=== PATIENT | female | born 1935 | race African-American/Black ===

== ENCOUNTER 2018-07-13 13:23 | Inpatient (IN) | payer MEDICARE, MEDICAID ==
--- NOTE | 2018-07-13 14:15 | C.PDOC ---
History Of Present Illness 82 y/o female with a PMHx of HTN, hypercholesterolemia, osteoporosis, sent in by PMD for 3 day history of chest pain and shortness of breath. Patient describes the pain as pressure-like and non-radiating. Daughter at bedside reports patient has been complaining of lightheadedness as well. She otherwise denies any fevers, chills, night sweats, abdominal pain, diarrhea, bloody or dark stools, productive cough, dizziness, nausea, vomiting, or leg pain/swelling. Daughter states patient did not take any aspirin or medication for pain prior to arrival. Patient is complaint with all other medications as per family, they deny any blo od thinner use. PMD- Dr. Harris Time Seen by Provider: 07/13/18 14:15 Chief Complaint (Nursing): Chest Pain History Per: Family (Daughter at bedside) History/Exam Limitations: no limitations Onset/Duration Of Symptoms: Days (x3) Current Symptoms Are (Timing): Still Present Quality: Pressure Associated Symptoms: Dyspnea Past Medical History Reviewed: Historical Data, Nursing Documentation, Vital Signs Vital Signs: Last Vital Signs Temp 99.1 F 07/13/18 13:26 Pulse 89 07/13/18 13:26 Resp 20 07/13/18 13:26 BP 187/66 H 07/13/18 13:26 Pulse Ox - Medical History PMH: HTN, Hypercholesterolemia, Osteoporosis Family History: States: No Known Family Hx - Social History Hx Alcohol Use: No Hx Substance Use: No - Immunization History Hx Tetanus Toxoid Vaccination: No Hx Influenza Vaccination: No Review Of Systems Constitutional: Negative for: Fever, Chills, Sweats Eyes: Negative for: Pain, Vision Change ENT: Negative for: Ear Pain, Ear Discharge, Nose Congestion, Mouth Pain Cardiovascular: Positive for: Chest Pain, Light Headedness Respiratory: Positive for: Shortness of Breath. Negative for: Cough, Hemoptysis, SOB with Excertion, Pleuritic Pain Gastrointestinal: Negative for: Nausea, Vomiting, Abdominal Pain, Diarrhea, Melena, Hematochezia Genitourinary: Negative for: Dysuria, Frequency Musculoskeletal: Negative for: Neck Pain, Shoulder Pain Neurological: Negative for: Weakness, Numbness, Headache, Dizziness Physical Exam - Physical Exam Appears: Non-toxic, No Acute Distress Skin: Warm, Dry Head: Normacephalic Eye(s): bilateral: Normal Inspection, PERRL, EOMI Oral Mucosa: Moist Neck: Trachea Midline, Supple, Other (No meningeal signs- negative kernig's and brudzinskis) Chest: Symmetrical, No Tenderness Cardiovascular: Rhythm Regular, Other (no rub) Respiratory: No Accessory Muscle Use, Rales (bilaterally at the bases), No Rhonchi, No Wheezing, Other (No respiratory distress) Gastrointestinal/Abdominal: Soft, No Tenderness, No Distention Back: No CVA Tenderness, No Vertebral Tenderness Extremity: Bilateral: Normal Color And Temperature Pulses: Left Dorsalis Pedis: Normal, Right Dorsalis Pedis: Normal Neurological/Psych: Oriented x3 ED Course And Treatment - Laboratory Results Result Diagrams: 07/13/18 14:40 07/13/18 14:40 O2 Sat by Pulse Oximetry: 100 Pulse Ox Interpretation: Normal Medical Decision Making Medical Decision Making: Impression: 82 y/o F p/w chest pain and SOB for 3 days. Sent in by PMD For eval and admission, b/l crackles at bases in NAD on exam. b/l LE 1+ swelling. Pending imaging and labs. Initial Plan: --EKG --CMP --Magnesium --Troponin I --Pro-BNP --CBC --PTT/PT --Blood type/screen --Duoneb 3 ml INH --Lasix 20 mg IVP --Reassess after treatment Progress: EK bpm, NSR, no STEMI 1526 troponin unremarkable BNP elevated Lasix given No wheezes on exam, duoneb given ppx. Pending XRAY, followed by ASA if non-enlarged mediastinum CXR read: Cardiomegaly. Moderate pulmonary venous congestion. Will obtain CT Chest. given some mediastinal enlargement CTA Chest resulted: There is suboptimal opacification of the pulmonary arteries. Given this limitation, there are no visible intraluminal filling defects within the central pulmonary arteries to suggest central pulmonary embolism. Patchy bilateral ground-glass opacities and evidence of thickened septal lines presumably due to mild interstitial edema. Correlate clinically. Cardiomegaly. 10 mm nodule noted within the left breast soft tissues of uncertain etiology. Recommend correlation with physical exam and dedicated breast imaging. 1757 no aortic dissection per CT Informed family regarding 10 mm nodule appreciate consult w/ Dr. Harris- to admit to his service. ASA ordered. pt in NAD. Disposition - Disposition Disposition Time: 17:58 Condition: GOOD Forms: [facility] (Japanese) - Clinical Impression Clinical Impression: Chest pain - Scribe Statement The provider has reviewed the documentation as recorded by the Scribe (Sheryl Bunch) Provider Attestation: All medical record entries made by the Scribe were at my direction and person ally dictated by me. I have reviewed the chart and agree that the record accurately reflects my personal performance of the history, physical exam, medical decision making, and the department course for this patient. I have also personally directed, reviewed, and agree with the discharge instructions and disposition.
[2018-07-13] MEDS ORDERED: Albuterol-Ipratrop 3 mg / 0.5 (3 ml) UD ONE (14:42)
[2018-07-13 14:46] LABS: BASO # 0.1 K/uL (0.0-0.2); BASO % 1.4 % (0.0-2.0); EOS # 0.1 K/uL (0.0-0.7); EOS % 1.3 % (0.0-4.0); HEMOGLOBIN 11.6 g/dL (11.0-16.0); LYMPH # 2.1 K/uL (1.0-4.3); LYMPH % 20.5 % (20.0-40.0); MEAN CELL VOLUME 81.5 fL (81.0-99.0); MEAN CORPUSCULAR HEMOGLOBIN 25.5 pg (27.0-31.0); MEAN CORPUSCULAR HGB CONC 31.3 g/dL (33.0-37.0); MEAN PLATELET VOLUME 9.3 fL (7.2-11.7); MONO # 1.1 K/uL (0.0-0.8); MONO % 10.8 % (0.0-10.0); NEUT # 6.7 K/uL (1.8-7.0); NRBC % 0.1 % (0.0-2.0); RBC 4.53 Mil/uL (3.80-5.20); WHITE BLOOD COUNT 10.2 K/uL (4.8-10.8)
[2018-07-13 14:54] LABS: INR 1.2; PROTHROMBIN TIME 13.6 SECONDS (9.7-12.2)
[2018-07-13] MEDS ORDERED: Albuterol-Ipratrop 3 mg / 0.5 (3 ml) UD INH STA (14:54)
[2018-07-13 14:59] LABS: ALB/GLOB RATIO 1.2 (1.0-2.1); ALBUMIN 4.3 g/dL (3.5-5.0); ALT/SGPT 22 U/L (9-52); AST/SGOT 24 U/L (14-36); BLOOD UREA NITROGEN 14 mg/dL (7-17); GFR NON-AFRICAN AMERICAN > 60
[2018-07-13 15:22] LABS: B-TYPE NATRIURETIC PEPTIDE 987 pg/mL (0-900)
--- NOTE | 2018-07-13 16:51 | RAD ---
HISTORY: cp COMPARISON: None available. TECHNIQUE: Chest PA and lateral FINDINGS: LUNGS: Moderate pulmonary venous congestion. No focal consolidation. Please note that chest x-ray has limited sensitivity for the detection of pulmonary masses. PLEURA: No significant pleural effusion identified. No definite pneumothorax . CARDIOVASCULAR: Cardiomegaly. Ectatic aorta. No atherosclerotic calcification present. OSSEOUS STRUCTURES: Osseous demineralization. Degenerative changes. Kyphosis. VISUALIZED UPPER ABDOMEN: Unremarkable. OTHER FINDINGS: None. IMPRESSION: Cardiomegaly. Moderate pulmonary venous congestion.
[2018-07-13] MEDS ORDERED: Iodixanol 320 MG/ML 100 ML BOTTLE IV ONE (17:14)
--- NOTE | 2018-07-13 17:48 | CT ---
Date of service: 07/13/2018 CTA chest PE protocol Indication: chest pain, ectatic aorta Technique: Contiguous axial images were obtained through the chest with intravenous contrast enhancement. Sagittal and coronal reconstructions were generated and reviewed. This CT exam was performed using 1 or more of the following dose reduction techniques: Automated exposure control, adjustment of the MAA and/or kV according to patient size, and/or use of iterative reconstruction technique. IV contrast: 100 mL Visipaque 320 IV Radiation dose (DLP): 468.44 MGy-cm. Comparison: Chest x-ray performed 07/13/18 Findings: Visualized portions of the inferior thyroid gland appear unremarkable. The mediastinal and hilar vascular structures appear within normal limits. Cardiomegaly. Sub cm mediastinal/prevascular lymph nodes. There is suboptimal opacification of the pulmonary arteries. Given this limitation, there are no visible intraluminal filling defects within the central pulmonary arteries to suggest central pulmonary embolism. Patchy bilateral ground-glass opacities and evidence of thickened septal lines presumably due to mild interstitial edema. No focal consolidation. No pleural effusion. No pneumothorax. Small hiatal hernia. Limited visualized portions of the upper abdomen appear grossly unremarkable. 10 mm nodule noted within the left breast (series 3, image 53), uncertain etiology. Osseous demineralization. Multilevel degenerative changes. Impression: There is suboptimal opacification of the pulmonary arteries. Given this limitation, there are no visible intraluminal filling defects within the central pulmonary arteries to suggest central pulmonary embolism. Patchy bilateral ground-glass opacities and evidence of thickened septal lines presumably due to mild interstitial edema. Correlate clinically. Cardiomegaly. 10 mm nodule noted within the left breast soft tissues of uncertain etiology. Recommend correlation with physical exam and dedicated breast imaging.
[2018-07-13 23:10] LABS: CK-MB 0.88 ng/mL (0.0-3.38)
[2018-07-14] MEDS: Nitroglycerin 2% Ointment Foilpak UD TOP SCH ×5 (02:50→23:58)
[2018-07-14] MEDS ORDERED: Nitroglycerin 2% Ointment Foilpak UD TOP ONE (06:15)
--- NOTE | 2018-07-14 07:06 | HP ---
HISTORY OF PRESENT ILLNESS: This is an 82-year-old female who was brought in with history of chest discomfort, shortness of breath, more so for the past 3 days. She has a longstanding history of hypertension, high cholesterol, and angina. She has had episodes of chest discomfort on exertion in the past, had been advised to have a cardiac cath, however, she has declined. She was in usual state of health up until past 3 days when she started to experience shortness of breath on minimal exertion and has chest discomfort, described as heaviness. She came to the office, and she was found to have fine basal rales and in mild respiratory distress on going from chair to examination table. EKG was unremarkable for acute changes. She was recommended admission. Care of plan was explained to the patient's daughter, and also the case was discussed with ER physicians. PERSONAL HISTORY: Does not smoke, does not drink. ALLERGIES: DENIED. FAMILY HISTORY: Unremarkable except one son also has angina and CAD, had angioplasty done. PAST MEDICAL HISTORY: History of admitted for atypical chest pain in the past, has had osteoarthritis in the knees, had surgery for the knee replacement. REVIEW OF SYSTEMS: Generalized weakness as noted. No fever. No chills. No cough. No hemoptysis. No hematemesis. No melena. Multiple joint pains and back pains. No urinary complaints. Episodes of anginal episode 2 to 3 times a month, which had been in stable pattern up until last few days. Sleeps on two pillows. No TIAs. No CVAs. No peptic ulcer disease. No depression. No seizures. PHYSICAL EXAMINATION: GENERAL: Shows elderly [place] female who is conscious, alert, in no acute distress. VITAL SIGNS: Blood pressure was 140/70, heart rate 76, respiratory rate 20, afebrile. She is 5 feet and 3 inches and weighs about 160 pounds approximately. HEENT: Head is normocephalic. Eyes, no pallor, no icterus. NECK: Supple. LUNGS: Show fine basal rales. HEART: PMI is not localized. S1 and S2 are distant, but no definite gallops. Grade 2/6 holosystolic murmur in mitral area. ABDOMEN: Soft. EXTREMITIES: Shows trace pitting edema in both ankles. Distal pulses are intact. NEUROLOGICAL: The patient is awake, alert, and oriented x3. No focal sign. LABORATORY DATA: Routine labs were acceptable. DIAGNOSTIC DATA: EKG, nothing acute. ASSESSMENT: This is an 82-year-old female with a history of mild chronic heart failure, coronary artery disease, and possibly worsening of the anginal status. PLAN: At this point is to admit to telemetry, rule out AK. We will obtain EKGs, cardiac enzymes. We will continue with beta surendra, nitrates, aspirin, and Lovenox. The patient will benefit from catheterization. This was explained to the patient's daughter and the patient also. We will follow. Manoj Harris MD
[2018-07-14 07:25] LABS: CK-MB 0.86 ng/mL (0.0-3.38)
[2018-07-14] MEDS ORDERED: Home Med 1 UNIT (Omeprazole [Omeprazole] 40 MG) PO SCH (10:00)
[2018-07-14] MEDS: Enoxaparin 60 mg Syringe SC SCH ×2 (10:31→22:21)
[2018-07-14] MEDS: Pantoprazole 40 mg EC Tab PO SCH (10:32)
[2018-07-14] MEDS: Metoprolol Succinate 25 mg XL Tab PO SCH (10:32)
--- NOTE | 2018-07-14 11:01 | CP.PCM.PN ---
Subjective - Date & Time of Evaluation Date of Evaluation: 07/14/18 Time of Evaluation: 10:59 - Subjective Subjective: sob++ Objective - Vital Signs/Intake and Output Vital Signs (last 24 hours): Temp Pulse Resp BP Pulse Ox 98.9 F 79 18 117/87 68 L 07/14/18 08:42 07/14/18 08:42 07/14/18 08:42 07/14/18 10:31 07/14/18 08:42 Intake and Output: 07/14/18 07/14/18 06:59 18:59 Output Total 700 Balance -700 - Medications Medications: Current Medications Aspirin (Ecotrin) 81 mg PO DAILY [facility] Last Admin: 07/14/18 10:31 Dose: 81 mg Enoxaparin Sodium (Lovenox) 60 mg SC Q12 [facility] Last Admin: 07/14/18 10:31 Dose: 60 mg Furosemide (Lasix) 40 mg IVP DAILY [facility] Stop: 07/15/18 11:00 Last Admin: 07/14/18 10:31 Dose: 40 mg Influenza Virus Vaccine (Fluzone Quad [id number]) 60 mcg IM .ONCE ONE Stop: 07/16/18 14:01 Metoprolol Succinate (Toprol Xl) 25 mg PO DAILY [facility] Last Admin: 07/14/18 10:32 Dose: 25 mg Nitroglycerin (Nitro-Bid 2% Oint) 0.5 ea TOP Q6 [facility] Last Admin: 07/14/18 06:16 Dose: Not Given Pantoprazole Sodium (Protonix Ec Tab) 40 mg PO DAILY [facility] Last Admin: 07/14/18 10:32 Dose: 40 mg Pneumococcal Polyvalent Vaccine (Pneumovax 23 Vaccine) 0.5 ml IM .ONCE ONE Stop: 07/16/18 14:01 - Labs Labs: 07/13/18 14:40 07/13/18 14:40 PT 13.6 SECONDS (9.7-12.2) H 07/13/18 14:40 INR 1.2 07/13/18 14:40 APTT 29 SECONDS (21-34) 07/13/18 14:40 - Constitutional Appears: No Acute Distress - Eye Exam Eye Exam: Normal appearance - Neck Exam Neck Exam: Normal Inspection - Respiratory Exam Respiratory Exam: Rales, Rhonchi - Cardiovascular Exam Cardiovascular Exam: REGULAR RHYTHM - GI/Abdominal Exam GI & Abdominal Exam: Soft - Extremities Exam Extremities Exam: absent: Pedal Edema - Neurological Exam Neurological Exam: Alert, Oriented x3 Assessment and Plan - Assessment and Plan (Free Text) Plan: chf.no mi.will increase lasox.re check echo.needs cath when stable.pul eval
--- NOTE | 2018-07-14 15:23 | CP.PCM.CON ---
History of Present Illness - History of Present Illness History of Present Illness: This is an 82-year-old female with a history of chest discomfort, SOB, more so for the past 3 days. She has a history of HTN, high cholesterol, and angina. She has had episodes of chest discomfort in the past, however, she has declined cardiac cath. She was in her usual state of health until 3 days ago, when she started to experience SOB on minimal exertion and has heavy chest discomfort. She went to Dr. Manoj Freeman office on 07/13/18 and was found to have fine basal rales and was in mild respiratory distress. On exam, patient is lying comfortably, is not using accessory muscles, has and denies productive cough, leg pain/swelling, or headache. She is also found to have b/l pulmonary crackles on exam today. She admits to SOB and chills. Pt is compliant with all medications at home, and denies using blood thinners. Family Hx: Unremarkable except 1 son also has angina and CAD, had angioplasty done. PMH: Atypical chest pain in the past, osteoarthritis of the knees, HTN, Hyperlipidemia PSH: Knee replacement Allergies: Denies Social: Does not smoke, drink, or use illicit drugs Medications: Aspirin 81 mg, Lovenox 60 mg, Lasix 40 mg, Metoprolol Succinate 25 mg, Nitroglycerin .5 ea, Protonix 40 mg BNP 07/13/18: 987 PT 07/13/18: 13.6 Troponin x 3 07/13/18 = (-) EKG 07/13/18: Normal sinus rythym, normal EKG CXR 07/13/18: Cardiomegaly. Moderate pulmonary venous congestion CTA 07/13/18: Suboptimal opacification of the pulmonary arteries. Does not suggest PE. Patchy bilateral ground-glass opacities and thickened septal lines presumably due to mild interstitial edema. Cardiomegaly. Continue patient on Lasix and monitor respiratory status. Past Patient History - Past Medical History & Family History Past Medical History?: Yes - Past Social History Smoking Status: Never Smoked - CARDIAC Hx Hypercholesterolemia: Yes Hx Hypertension: Yes - PULMONARY Hx Asthma: Yes - NEUROLOGICAL Hx Neurological Disorder: No - HEENT Hx Cataracts: Yes - RENAL Hx Chronic Kidney Disease: No - ENDOCRINE/METABOLIC Hx Endocrine Disorders: No - HEMATOLOGICAL/ONCOLOGICAL Hx Blood Disorders: No - INTEGUMENTARY Hx Dermatological Problems: No - MUSCULOSKELETAL/RHEUMATOLOGICAL Hx Musculoskeletal Disorders: No Hx Falls: No - GASTROINTESTINAL Hx Gastrointestinal Disorders: No - GENITOURINARY/GYNECOLOGICAL Hx Genitourinary Disorders: No - PSYCHIATRIC Hx Psychophysiologic Disorder: No Hx Anxiety: No Hx Substance Use: No - SURGICAL HISTORY Hx Surgeries: Yes Other/Comment: cataract surgery - ANESTHESIA Hx Anesthesia: No Hx Anesthesia Reactions: No Hx Malignant Hyperthermia: No Has any member of the family had a problem w/ anesthesia?: No Meds Allergies/Adverse Reactions: Allergies Allergy/AdvReac Type Severity Reaction Status Date / Time No Known Allergies Allergy Unverified 07/13/18 13:32 - Medications Medications: Current Medications Aspirin (Ecotrin) 81 mg PO DAILY [facility] Last Admin: 07/14/18 10:31 Dose: 81 mg Enoxaparin Sodium (Lovenox) 60 mg SC Q12 [facility] Last Admin: 07/14/18 10:31 Dose: 60 mg Furosemide (Lasix) 40 mg IVP BID [facility] Influenza Virus Vaccine (Fluzone Quad [id number]) 60 mcg IM .ONCE ONE Stop: 07/16/18 14:01 Metoprolol Succinate (Toprol Xl) 25 mg PO DAILY [facility] Last Admin: 07/14/18 10:32 Dose: 25 mg Nitroglycerin (Nitro-Bid 2% Oint) 0.5 ea TOP Q6 [facility] Last Admin: 07/14/18 13:58 Dose: 0.5 ea Pantoprazole Sodium (Protonix Ec Tab) 40 mg PO DAILY [facility] Last Admin: 07/14/18 10:32 Dose: 40 mg Pneumococcal Polyvalent Vaccine (Pneumovax 23 Vaccine) 0.5 ml IM .ONCE ONE Stop: 07/16/18 14:01 Results - Vital Signs Recent Vital Signs: Last Vital Signs Temp 99.3 F 07/14/18 13:59 Pulse 85 07/14/18 13:59 Resp 20 07/14/18 13:59 BP 129/56 L 07/14/18 13:59 Pulse Ox 95 07/14/18 13:59 - Labs Result Diagrams: 07/13/18 14:40 07/13/18 14:40 Labs: Laboratory Results - last 24 hr 07/13/18 07/13/18 07/14/18 14:40 22:36 06:51 Total Creatine Kinase 49 53 CK-MB (Mass) 0.88 0.86 Troponin I < 0.0120 < 0.0120 Blood Type O POSITIVE Antibody Screen Negative
--- NOTE | 2018-07-14 20:15 | CP.PCM.CON ---
History of Present Illness - History of Present Illness History of Present Illness: Reason for Cosnultation: Unstable angina 82 y/o female with a PMHx of HTN, hypercholesterolemia, osteoporosis, sent in by PMD for 3 day history of chest pain and shortness of breath. Patient describes the pain as pressure-like and non-radiating. Daughter at bedside reports patient has been complaining of lightheadedness as well. She otherwise denies any fevers, chills, night sweats, abdominal pain, diarrhea, bloody or dark stools, productive cough, dizziness, nausea, vomiting, or leg pain/swelling. Daughter states patient did not take any aspirin or medication for pain prior to arrival. Patient is complaint with all other medications as per family, they deny any blood thinner use. PMD- Dr. Harris Chief Complaint (Nursing): Chest Pain History Per: Family (Daughter at bedside) History/Exam Limitations: no limitations Onset/Duration Of Symptoms: Days (x3) Current Symptoms Are (Timing): Still Present Quality: Pressure Associated Symptoms: Dyspnea Past Medical History Reviewed: Historical Data, Nursing Documentation, Vital Signs Vital Signs: Last Vital Signs Temp 99.1 F 07/13/18 13:26 Pulse 89 07/13/18 13:26 Resp 20 07/13/18 13:26 BP 187/66 H 07/13/18 13:26 Pulse Ox - Medical History PMH: HTN, Hypercholesterolemia, Osteoporosis Family History: States: No Known Family Hx - Social History Hx Alcohol Use: No Hx Substance Use: No - Immunization History Hx Tetanus Toxoid Vaccination: No Hx Influenza Vaccination: No Review Of Systems Constitutional: Negative for: Fever, Chills, Sweats Eyes: Negative for: Pain, Vision Change ENT: Negative for: Ear Pain, Ear Discharge, Nose Congestion, Mouth Pain Cardiovascular: Positive for: Chest Pain, Light Headedness Respiratory: Positive for: Shortness of Breath. Negative for: Cough, Hemoptysis, SOB with Excertion, Pleuritic Pain Gastrointestinal: Negative for: Nausea, Vomiting, Abdominal Pain, Diarrhea, Melena, Hematochezia Genitourinary: Negative for: Dysuria, Frequency Musculoskeletal: Negative for: Neck Pain, Shoulder Pain Neurological: Negative for: Weakness, Numbness, Headache, Dizziness Physical Exam - Physical Exam Appears: Non-toxic, No Acute Distress Skin: Warm, Dry Head: Normacephalic Eye(s): bilateral: Normal Inspection, PERRL, EOMI Oral Mucosa: Moist Neck: Trachea Midline, Supple, Other (No meningeal signs- negative kernig's and brudzinskis) Chest: Symmetrical, No Tenderness Cardiovascular: Rhythm Regular, Other (no rub) Respiratory: No Accessory Muscle Use, Rales (bilaterally at the bases), No Rhonchi, No Wheezing, Other (No respiratory distress) Gastrointestinal/Abdominal: Soft, No Tenderness, No Distention Back: No CVA Tenderness, No Vertebral Tenderness Extremity: Bilateral: Normal Color And Temperature Pulses: Left Dorsalis Pedis: Normal, Right Dorsalis Pedis: Normal Neurological/Psych: Oriented x3 Past Patient History - Past Medical History & Family History Past Medical History?: Yes - Past Social History Smoking Status: Never Smoked - CARDIAC Hx Hypercholesterolemia: Yes Hx Hypertension: Yes - PULMONARY Hx Asthma: Yes - NEUROLOGICAL Hx Neurological Disorder: No - HEENT Hx Cataracts: Yes - RENAL Hx Chronic Kidney Disease: No - ENDOCRINE/METABOLIC Hx Endocrine Disorders: No - HEMATOLOGICAL/ONCOLOGICAL Hx Blood Disorders: No - INTEGUMENTARY Hx Dermatological Problems: No - MUSCULOSKELETAL/RHEUMATOLOGICAL Hx Musculoskeletal Disorders: No Hx Falls: No - GASTROINTESTINAL Hx Gastrointestinal Disorders: No - GENITOURINARY/GYNECOLOGICAL Hx Genitourinary Disorders: No - PSYCHIATRIC Hx Psychophysiologic Disorder: No Hx Anxiety: No Hx Substance Use: No - SURGICAL HISTORY Hx Surgeries: Yes Other/Comment: cataract surgery - ANESTHESIA Hx Anesthesia: No Hx Anesthesia Reactions: No Hx Malignant Hyperthermia: No Has any member of the family had a problem w/ anesthesia?: No Meds Allergies/Adverse Reactions: Allergies Allergy/AdvReac Type Severity Reaction Status Date / Time No Known Allergies Allergy Unverified 07/13/18 13:32 - Medications Medications: Current Medications Aspirin (Ecotrin) 81 mg PO DAILY [facility] Last Admin: 07/14/18 10:31 Dose: 81 mg Enoxaparin Sodium (Lovenox) 60 mg SC Q12 [facility] Last Admin: 07/14/18 10:31 Dose: 60 mg Furosemide (Lasix) 40 mg IVP BID [facility] Last Admin: 07/14/18 17:47 Dose: 40 mg Influenza Virus Vaccine (Fluzone Quad [id number]) 60 mcg IM .ONCE ONE Stop: 07/16/18 14:01 Metoprolol Succinate (Toprol Xl) 25 mg PO DAILY [facility] Last Admin: 07/14/18 10:32 Dose: 25 mg Nitroglycerin (Nitro-Bid 2% Oint) 0.5 ea TOP Q6 [facility] Last Admin: 07/14/18 17:47 Dose: 0.5 ea Pantoprazole Sodium (Protonix Ec Tab) 40 mg PO DAILY [facility] Last Admin: 07/14/18 10:32 Dose: 40 mg Pneumococcal Polyvalent Vaccine (Pneumovax 23 Vaccine) 0.5 ml IM .ONCE ONE Stop: 07/16/18 14:01 Results - Vital Signs Recent Vital Signs: Last Vital Signs Temp 98.2 F 07/14/18 15:00 Pulse 76 07/14/18 15:00 Resp 18 07/14/18 15:00 BP 129/74 07/14/18 17:47 Pulse Ox 96 07/14/18 15:00 - Labs Result Diagrams: 07/13/18 14:40 07/13/18 14:40 Labs: Laboratory Results - last 24 hr 07/13/18 07/14/18 22:36 06:51 Total Creatine Kinase 49 53 CK-MB (Mass) 0.88 0.86 Troponin I < 0.0120 < 0.0120 Assessment & Plan - Assessment and Plan (Free Text) Assessment: Unstable angina HTN Hyperlipidemia Abnormal EKG For Cath tomorrow at 2pm D/W patient and her daughter
--- NOTE | 2018-07-14 23:50 | CARD ---
APPROVED REPORT Date of service: 07/13/2018 EKG Measurement Heart [id number] <Conclusion> Normal sinus rhythm Normal ECG
[2018-07-15] MEDS: Nitroglycerin 2% Ointment Foilpak UD TOP SCH ×4 (05:38→23:49)
[2018-07-15] MEDS: Metoprolol Succinate 25 mg XL Tab PO SCH (09:16)
[2018-07-15] MEDS: Pantoprazole 40 mg EC Tab PO SCH (09:17)
[2018-07-15] MEDS: Enoxaparin 60 mg Syringe SC SCH ×2 (09:18→21:43)
--- NOTE | 2018-07-15 10:47 | CP.PCM.PN ---
Subjective - Date & Time of Evaluation Date of Evaluation: 07/15/18 Time of Evaluation: 10:46 - Subjective Subjective: sob is better.seen by dr briceño & dr sanderson Objective - Vital Signs/Intake and Output Vital Signs (last 24 hours): Temp Pulse Resp BP Pulse Ox 97.9 F 91 H 18 126/72 94 L 07/15/18 08:10 07/15/18 09:15 07/15/18 08:10 07/15/18 09:17 07/15/18 08:10 Intake and Output: 07/15/18 07/15/18 06:59 18:59 Intake Total 400 Balance 400 - Medications Medications: Current Medications Acetaminophen (Tylenol 325mg Tab) 650 mg PO Q6 PRN PRN Reason: Pain, moderate (4-7) Last Admin: 07/15/18 09:16 Dose: 650 mg Aspirin (Ecotrin) 81 mg PO DAILY [facility] Last Admin: 07/15/18 09:17 Dose: 81 mg Enoxaparin Sodium (Lovenox) 60 mg SC Q12 [facility] Last Admin: 07/15/18 09:18 Dose: 60 mg Furosemide (Lasix) 40 mg IVP BID [facility] Last Admin: 07/15/18 09:17 Dose: 40 mg Influenza Virus Vaccine (Fluzone Quad [id number]) 60 mcg IM .ONCE ONE Stop: 07/16/18 14:01 Metoprolol Succinate (Toprol Xl) 25 mg PO DAILY [facility] Last Admin: 07/15/18 09:16 Dose: 25 mg Nitroglycerin (Nitro-Bid 2% Oint) 0.5 ea TOP Q6 [facility] Last Admin: 07/15/18 05:38 Dose: 0.5 ea Pantoprazole Sodium (Protonix Ec Tab) 40 mg PO DAILY [facility] Last Admin: 07/15/18 09:17 Dose: 40 mg Pneumococcal Polyvalent Vaccine (Pneumovax 23 Vaccine) 0.5 ml IM .ONCE ONE Stop: 07/16/18 14:01 - Labs Labs: 07/13/18 14:40 07/13/18 14:40 PT 13.6 SECONDS (9.7-12.2) H 07/13/18 14:40 INR 1.2 07/13/18 14:40 APTT 29 SECONDS (21-34) 07/13/18 14:40 - Constitutional Appears: No Acute Distress - Eye Exam Eye Exam: Normal appearance - ENT Exam ENT Exam: Mucous Membranes Moist - Neck Exam Neck Exam: Normal Inspection - Respiratory Exam Respiratory Exam: Rales - Cardiovascular Exam Cardiovascular Exam: REGULAR RHYTHM - Extremities Exam Extremities Exam: absent: Pedal Edema - Neurological Exam Neurological Exam: Alert, Oriented x3 Assessment and Plan - Assessment and Plan (Free Text) Plan: chf,poss cad.ct iv lasix.cath in am
--- NOTE | 2018-07-15 11:04 | CP.PCM.PN ---
Subjective - Date & Time of Evaluation Date of Evaluation: 07/15/18 Time of Evaluation: 11:03 - Subjective Subjective: Cath postponed to tomorrow morning 7am NPO after MN excepet meds Resume diet today Objective - Vital Signs/Intake and Output Vital Signs (last 24 hours): Temp Pulse Resp BP Pulse Ox 97.9 F 91 H 18 126/72 94 L 07/15/18 08:10 07/15/18 09:15 07/15/18 08:10 07/15/18 09:17 07/15/18 08:10 Intake and Output: 07/15/18 07/15/18 06:59 18:59 Intake Total 400 Balance 400 - Medications Medications: Current Medications Acetaminophen (Tylenol 325mg Tab) 650 mg PO Q6 PRN PRN Reason: Pain, moderate (4-7) Last Admin: 07/15/18 09:16 Dose: 650 mg Aspirin (Ecotrin) 81 mg PO DAILY [facility] Last Admin: 07/15/18 09:17 Dose: 81 mg Enoxaparin Sodium (Lovenox) 60 mg SC Q12 [facility] Last Admin: 07/15/18 09:18 Dose: 60 mg Furosemide (Lasix) 40 mg IVP BID [facility] Last Admin: 07/15/18 09:17 Dose: 40 mg Influenza Virus Vaccine (Fluzone Quad [id number]) 60 mcg IM .ONCE ONE Stop: 07/16/18 14:01 Metoprolol Succinate (Toprol Xl) 25 mg PO DAILY [facility] Last Admin: 07/15/18 09:16 Dose: 25 mg Nitroglycerin (Nitro-Bid 2% Oint) 0.5 ea TOP Q6 [facility] Last Admin: 07/15/18 05:38 Dose: 0.5 ea Pantoprazole Sodium (Protonix Ec Tab) 40 mg PO DAILY [facility] Last Admin: 07/15/18 09:17 Dose: 40 mg Pneumococcal Polyvalent Vaccine (Pneumovax 23 Vaccine) 0.5 ml IM .ONCE ONE Stop: 07/16/18 14:01 - Labs Labs: 07/13/18 14:40 07/13/18 14:40 PT 13.6 SECONDS (9.7-12.2) H 07/13/18 14:40 INR 1.2 07/13/18 14:40 APTT 29 SECONDS (21-34) 07/13/18 14:40
[2018-07-15 11:51] LABS: BASO # 0.1 K/uL (0.0-0.2); BASO % 0.8 % (0.0-2.0); EOS # 0.1 K/uL (0.0-0.7); EOS % 1.2 % (0.0-4.0); HEMOGLOBIN 10.7 g/dL (11.0-16.0); LYMPH # 1.6 K/uL (1.0-4.3); LYMPH % 16.3 % (20.0-40.0); MEAN CELL VOLUME 81.9 fL (81.0-99.0); MEAN CORPUSCULAR HEMOGLOBIN 25.5 pg (27.0-31.0); MEAN CORPUSCULAR HGB CONC 31.1 g/dL (33.0-37.0); MEAN PLATELET VOLUME 9.6 fL (7.2-11.7); MONO # 1.4 K/uL (0.0-0.8); NEUT # 6.7 K/uL (1.8-7.0); NEUT % 67.7 % (50.0-75.0); NRBC % 0.2 % (0.0-2.0); RBC 4.2 Mil/uL (3.80-5.20); RED CELL DISTRIBUTION WIDTH 16.7 % (11.5-14.5); WHITE BLOOD COUNT 9.9 K/uL (4.8-10.8)
[2018-07-15 12:25] LABS: BLOOD UREA NITROGEN 16 mg/dL (7-17); CALCIUM 7.9 mg/dl (8.6-10.4); GFR NON-AFRICAN AMERICAN > 60
--- NOTE | 2018-07-15 17:41 | CP.PCM.PN ---
Subjective - Date & Time of Evaluation Date of Evaluation: 07/15/18 Time of Evaluation: 09:00 - Subjective Subjective: Patient seen and examined at bedside, lying down comfortably. Afebrile and in no acute distress. Denies shortness of breath, cough, chest pain, fever. Pt is stable from pulmonary standpoint. Pt is scheduled for cath tomorrow at 7am. Discussed with family member. Continue patient on Lasix and monitor respiratory status. Objective - Vital Signs/Intake and Output Vital Signs (last 24 hours): Temp Pulse Resp BP Pulse Ox 97.9 F 75 18 121/72 96 07/15/18 15:00 07/15/18 16:47 07/15/18 15:00 07/15/18 15:00 07/15/18 15:00 Intake and Output: 07/15/18 07/15/18 06:59 18:59 Intake Total 400 400 Balance 400 400 - Medications Medications: Current Medications Acetaminophen (Tylenol 325mg Tab) 650 mg PO Q6 PRN PRN Reason: Pain, moderate (4-7) Last Admin: 07/15/18 09:16 Dose: 650 mg Aspirin (Ecotrin) 81 mg PO DAILY [facility] Last Admin: 07/15/18 09:17 Dose: 81 mg Enoxaparin Sodium (Lovenox) 60 mg SC Q12 [facility] Last Admin: 07/15/18 09:18 Dose: 60 mg Furosemide (Lasix) 40 mg IVP BID [facility] Last Admin: 07/15/18 09:17 Dose: 40 mg Influenza Virus Vaccine (Fluzone Quad [id number]) 60 mcg IM .ONCE ONE Stop: 07/16/18 14:01 Metoprolol Succinate (Toprol Xl) 25 mg PO DAILY [facility] Last Admin: 07/15/18 09:16 Dose: 25 mg Nitroglycerin (Nitro-Bid 2% Oint) 0.5 ea TOP Q6 [facility] Last Admin: 07/15/18 13:05 Dose: 0.5 ea Pantoprazole Sodium (Protonix Ec Tab) 40 mg PO DAILY [facility] Last Admin: 07/15/18 09:17 Dose: 40 mg Pneumococcal Polyvalent Vaccine (Pneumovax 23 Vaccine) 0.5 ml IM .ONCE ONE Stop: 07/16/18 14:01 - Labs Labs: 07/15/18 11:41 07/15/18 11:41 PT 13.6 SECONDS (9.7-12.2) H 07/13/18 14:40 INR 1.2 07/13/18 14:40 APTT 29 SECONDS (21-34) 07/13/18 14:40
[2018-07-16] MEDS: Nitroglycerin 2% Ointment Foilpak UD TOP SCH ×4 (05:41→23:48)
[2018-07-16 06:48] LABS: INR 1.2; PROTHROMBIN TIME 13.5 SECONDS (9.7-12.2)
[2018-07-16 06:50] LABS: BASO # 0.1 K/uL (0.0-0.2); BASO % 0.9 % (0.0-2.0); EOS # 0.1 K/uL (0.0-0.7); EOS % 1.4 % (0.0-4.0); HEMOGLOBIN 11.1 g/dL (11.0-16.0); LYMPH # 1.4 K/uL (1.0-4.3); LYMPH % 14.5 % (20.0-40.0); MEAN CORPUSCULAR HGB CONC 30.8 g/dL (33.0-37.0); MEAN PLATELET VOLUME 10.1 fL (7.2-11.7); MONO # 1.1 K/uL (0.0-0.8); NEUT # 6.9 K/uL (1.8-7.0); NEUT % 72.2 % (50.0-75.0); NRBC % 0.2 % (0.0-2.0); RBC 4.45 Mil/uL (3.80-5.20); RED CELL DISTRIBUTION WIDTH 16.5 % (11.5-14.5); WHITE BLOOD COUNT 9.6 K/uL (4.8-10.8)
[2018-07-16 06:57] LABS: BLOOD UREA NITROGEN 13 mg/dL (7-17); CALCIUM 8.2 mg/dl (8.6-10.4); GFR NON-AFRICAN AMERICAN > 60
[2018-07-16] MEDS ORDERED: Iohexol 350mg/ml 100 ML ONE (06:57)
[2018-07-16] MEDS ORDERED: Nitroglycerin 50mg in D5W 50 MG/250 ML BOTTLE IV ONE (07:21)
[2018-07-16] MEDS ORDERED: Verapamil 2 ML ONE (07:21)
[2018-07-16] MEDS ORDERED: Midazolam 2 MG/2 ML VIAL ONE (07:32)
[2018-07-16] MEDS: Metoprolol Succinate 25 mg XL Tab PO SCH (10:33)
[2018-07-16] MEDS: Pantoprazole 40 mg EC Tab PO SCH (10:33)
--- NOTE | 2018-07-16 11:29 | CP.PCM.PN ---
Subjective - Date & Time of Evaluation Date of Evaluation: 07/16/18 Time of Evaluation: 11:27 - Subjective Subjective: caTH DONE.NORMAL CORONARIES. Objective - Vital Signs/Intake and Output Vital Signs (last 24 hours): Temp Pulse Resp BP Pulse Ox 98.3 F 87 18 114/62 97 07/16/18 10:31 07/16/18 10:55 07/16/18 10:31 07/16/18 10:32 07/16/18 10:31 Intake and Output: 07/16/18 07/16/18 06:59 18:59 Intake Total 400 Balance 400 - Medications Medications: Current Medications Acetaminophen (Tylenol 325mg Tab) 650 mg PO Q6 PRN PRN Reason: Pain, moderate (4-7) Last Admin: 07/15/18 09:16 Dose: 650 mg Aspirin (Ecotrin) 81 mg PO DAILY [facility] Last Admin: 07/16/18 10:33 Dose: 81 mg Enoxaparin Sodium (Lovenox) 60 mg SC Q12 [facility] Last Admin: 07/15/18 21:43 Dose: 60 mg Furosemide (Lasix) 40 mg IVP BID [facility] Last Admin: 07/16/18 10:32 Dose: 40 mg Influenza Virus Vaccine (Fluzone Quad [id number]) 60 mcg IM .ONCE ONE Stop: 07/16/18 14:01 Metoprolol Succinate (Toprol Xl) 25 mg PO DAILY [facility] Last Admin: 07/16/18 10:33 Dose: 25 mg Nitroglycerin (Nitro-Bid 2% Oint) 0.5 ea TOP Q6 [facility] Last Admin: 07/16/18 05:41 Dose: 0.5 ea Pantoprazole Sodium (Protonix Ec Tab) 40 mg PO DAILY [facility] Last Admin: 07/16/18 10:33 Dose: 40 mg Pneumococcal Polyvalent Vaccine (Pneumovax 23 Vaccine) 0.5 ml IM .ONCE ONE Stop: 07/16/18 14:01 - Labs Labs: 07/16/18 06:30 07/16/18 06:30 PT 13.5 SECONDS (9.7-12.2) H 07/16/18 06:30 INR 1.2 07/16/18 06:30 APTT 36 SECONDS (21-34) H D 07/16/18 06:30 - Constitutional Appears: No Acute Distress - Eye Exam Eye Exam: Normal appearance - Neck Exam Neck Exam: Normal Inspection - Respiratory Exam Respiratory Exam: Rales - Cardiovascular Exam Cardiovascular Exam: REGULAR RHYTHM, Murmur - GI/Abdominal Exam GI & Abdominal Exam: Soft - Neurological Exam Neurological Exam: Alert, Oriented x3 Assessment and Plan - Assessment and Plan (Free Text) Assessment: will ct diurectic.pul f/u.
--- NOTE | 2018-07-16 12:41 | CP.PCM.PN ---
Subjective - Date & Time of Evaluation Date of Evaluation: 07/16/18 Time of Evaluation: 09:55 - Subjective Subjective: Patient seen and examined at bedside, lying down comfortably. status post cardiac catheter Afebrile and in no acute distress. Denies shortness of breath, cough, chest pain, fever. Pt is stable from pulmonary standpoint. Continue patient on Lasix and monitor respiratory statu Objective - Vital Signs/Intake and Output Vital Signs (last 24 hours): Temp Pulse Resp BP Pulse Ox 98.3 F 87 18 114/62 97 07/16/18 10:31 07/16/18 10:55 07/16/18 10:31 07/16/18 10:32 07/16/18 10:31 Intake and Output: 07/16/18 07/16/18 06:59 18:59 Intake Total 400 Balance 400 - Medications Medications: Current Medications Acetaminophen (Tylenol 325mg Tab) 650 mg PO Q6 PRN PRN Reason: Pain, moderate (4-7) Last Admin: 07/15/18 09:16 Dose: 650 mg Albuterol/Ipratropium (Duoneb 3 Mg/0.5 Mg (3 Ml) Ud) 3 ml INH RQ6 [facility] Amlodipine Besylate (Norvasc) 5 mg PO DAILY [facility] Aspirin (Ecotrin) 81 mg PO DAILY [facility] Last Admin: 07/16/18 10:33 Dose: 81 mg Enoxaparin Sodium (Lovenox) 60 mg SC Q12 [facility] Last Admin: 07/15/18 21:43 Dose: 60 mg Furosemide (Lasix) 40 mg PO BID [facility] Influenza Virus Vaccine (Fluzone Quad [id number]) 60 mcg IM .ONCE ONE Stop: 07/16/18 14:01 Nitroglycerin (Nitro-Bid 2% Oint) 0.5 ea TOP Q6 [facility] Last Admin: 07/16/18 05:41 Dose: 0.5 ea Pantoprazole Sodium (Protonix Ec Tab) 40 mg PO DAILY [facility] Last Admin: 07/16/18 10:33 Dose: 40 mg Pneumococcal Polyvalent Vaccine (Pneumovax 23 Vaccine) 0.5 ml IM .ONCE ONE Stop: 07/16/18 14:01 - Labs Labs: 07/16/18 06:30 07/16/18 06:30 PT 13.5 SECONDS (9.7-12.2) H 07/16/18 06:30 INR 1.2 07/16/18 06:30 APTT 36 SECONDS (21-34) H D 07/16/18 06:30
[2018-07-16] MEDS ORDERED: Pneumococcal 23-Valent Vaccine IM ONE (14:00)
[2018-07-16] MEDS ORDERED: Influenza Vaccine 60 MCG/0.5 ML SYR (3 yr & up) IM ONE (14:00)
[2018-07-16] MEDS: Albuterol-Ipratrop 3 mg / 0.5 (3 ml) UD INH SCH (20:39)
[2018-07-17] MEDS: Nitroglycerin 2% Ointment Foilpak UD TOP SCH ×2 (05:55→11:47)
[2018-07-17] MEDS: Albuterol-Ipratrop 3 mg / 0.5 (3 ml) UD INH SCH ×3 (06:54→13:26)
[2018-07-17 07:37] VITALS: RESP 18; TEMP 98.7; O2SAT 96
[2018-07-17 07:38] LABS: BASO # 0.1 K/uL (0.0-0.2); EOS # 0.1 K/uL (0.0-0.7); EOS % 1.3 % (0.0-4.0); HEMOGLOBIN 11.5 g/dL (11.0-16.0); LYMPH # 1.6 K/uL (1.0-4.3); LYMPH % 19.7 % (20.0-40.0); MEAN CELL VOLUME 80.8 fL (81.0-99.0); MEAN CORPUSCULAR HEMOGLOBIN 25.8 pg (27.0-31.0); MEAN PLATELET VOLUME 9.8 fL (7.2-11.7); MONO % 13.1 % (0.0-10.0); NEUT # 5.2 K/uL (1.8-7.0); NEUT % 64.9 % (50.0-75.0); NRBC % 0.1 % (0.0-2.0); RBC 4.44 Mil/uL (3.80-5.20); RED CELL DISTRIBUTION WIDTH 16.6 % (11.5-14.5)
--- NOTE | 2018-07-17 07:39 | CP.PCM.PN ---
Subjective - Date & Time of Evaluation Date of Evaluation: 07/16/18 Time of Evaluation: 17:30 - Subjective Subjective: Patient s/p Cardiac cath Normal Coronaries Normal EF Full report to be dictated Medical and Cardiac management as per Dr. Lorenza Harris I will sign off Thank you Objective - Vital Signs/Intake and Output Vital Signs (last 24 hours): Temp Pulse Resp BP Pulse Ox 98.7 F 72 18 108/60 96 07/17/18 07:00 07/17/18 07:00 07/17/18 07:00 07/17/18 07:00 07/17/18 07:00 Intake and Output: 07/17/18 07/17/18 06:59 18:59 Intake Total 300 Balance 300 - Medications Medications: Current Medications Acetaminophen (Tylenol 325mg Tab) 650 mg PO Q6 PRN PRN Reason: Pain, moderate (4-7) Last Admin: 07/15/18 09:16 Dose: 650 mg Albuterol/Ipratropium (Duoneb 3 Mg/0.5 Mg (3 Ml) Ud) 3 ml INH RQ6 [facility] Last Admin: 07/17/18 06:54 Dose: Not Given Amlodipine Besylate (Norvasc) 5 mg PO DAILY [facility] Aspirin (Ecotrin) 81 mg PO DAILY [facility] Last Admin: 07/16/18 10:33 Dose: 81 mg Enoxaparin Sodium (Lovenox) 60 mg SC Q12 [facility] Last Admin: 07/15/18 21:43 Dose: 60 mg Furosemide (Lasix) 40 mg PO BID [facility] Last Admin: 07/16/18 17:13 Dose: 40 mg Nitroglycerin (Nitro-Bid 2% Oint) 0.5 ea TOP Q6 [facility] Last Admin: 07/17/18 05:55 Dose: 0.5 ea Pantoprazole Sodium (Protonix Ec Tab) 40 mg PO DAILY [facility] Last Admin: 07/16/18 10:33 Dose: 40 mg - Labs Labs: 07/16/18 06:30 07/16/18 06:30 PT 13.5 SECONDS (9.7-12.2) H 07/16/18 06:30 INR 1.2 07/16/18 06:30 APTT 36 SECONDS (21-34) H D 07/16/18 06:30
[2018-07-17 08:18] LABS: ALB/GLOB RATIO 1.1 (1.0-2.1); ALBUMIN 3.6 g/dL (3.5-5.0); ALT/SGPT 22 U/L (9-52); AST/SGOT 23 U/L (14-36); BLOOD UREA NITROGEN 15 mg/dL (7-17); CALCIUM 8.5 mg/dl (8.6-10.4); GFR NON-AFRICAN AMERICAN > 60
[2018-07-17] MEDS: Pantoprazole 40 mg EC Tab PO SCH (10:08)
[2018-07-17 11:47] VITALS: BP 144/76; PULSE 79
--- NOTE | 2018-07-17 13:44 | CP.PCM.PN ---
Subjective - Date & Time of Evaluation Date of Evaluation: 07/17/18 Time of Evaluation: 13:43 - Subjective Subjective: PATIENT SEEN AND EXAMINED AT THE BEDSIDE Objective - Vital Signs/Intake and Output Vital Signs (last 24 hours): Temp Pulse Resp BP Pulse Ox 98.7 F 79 18 144/76 96 07/17/18 07:00 07/17/18 11:46 07/17/18 07:00 07/17/18 11:46 07/17/18 07:00 Intake and Output: 07/17/18 07/17/18 06:59 18:59 Intake Total 300 Balance 300 - Medications Medications: Current Medications Acetaminophen (Tylenol 325mg Tab) 650 mg PO Q6 PRN PRN Reason: Pain, moderate (4-7) Last Admin: 07/15/18 09:16 Dose: 650 mg Albuterol/Ipratropium (Duoneb 3 Mg/0.5 Mg (3 Ml) Ud) 3 ml INH RQ6 [facility] Last Admin: 07/17/18 13:26 Dose: 3 ml Amlodipine Besylate (Norvasc) 5 mg PO DAILY [facility] Last Admin: 07/17/18 10:08 Dose: 5 mg Aspirin (Ecotrin) 81 mg PO DAILY [facility] Last Admin: 07/17/18 10:09 Dose: 81 mg Enoxaparin Sodium (Lovenox) 60 mg SC Q12 [facility] Last Admin: 07/15/18 21:43 Dose: 60 mg Furosemide (Lasix) 40 mg PO BID [facility] Last Admin: 07/17/18 10:09 Dose: 40 mg Nitroglycerin (Nitro-Bid 2% Oint) 0.5 ea TOP Q6 [facility] Last Admin: 07/17/18 11:47 Dose: 0.5 ea Pantoprazole Sodium (Protonix Ec Tab) 40 mg PO DAILY [facility] Last Admin: 07/17/18 10:08 Dose: 40 mg - Labs Labs: 07/17/18 07:08 07/17/18 07:08 PT 13.5 SECONDS (9.7-12.2) H 07/16/18 06:30 INR 1.2 07/16/18 06:30 APTT 36 SECONDS (21-34) H D 07/16/18 06:30
--- NOTE | 2018-07-18 11:36 | DS ---
SUMMARY: This 82-year-old female was brought in with a mild congestive heart failure. CHF resolved with IV Lasix. She was continued with blood pressure medications. She also received a bronchospasm. Pulmonary evaluation was done with Dr. Nassar. CT angio of the chest was negative for pulmonary emboli. Echocardiogram had showed normal LV systolic function and RV systolic function. She underwent cardiac cath by Dr. Gray and was found to have normal coronary arteries. Blood work today showed CO2 elevated to 40. IV Lasix has been discontinued. P.o. Lasix should be withheld for 2 days. We will encourage p.o. fluid for now. Return to office this 07/19/2018, in the office and we will recheck the BMP this week. Medications have been according to the pharmacy. Care of plan was explained to the patient's family. She is stable now to be discharged as an outpatient. Medications were explained to the patient. P.o. encouraged fluid was explained to the patient. Proventil HFA and Symbicort was added along with Lasix and Toprol was discontinued because of the bronchospasm and Norvasc 5 mg p.o. once a day was added. She will return to see me this Thursday. Manoj Harris MD
--- NOTE | 2018-07-19 01:25 | CARDCATH ---
PROCEDURE DATE: 07/16/2018 PROCEDURES: 1. Left heart catheterization. 2. Coronary angiogram. REFERRING PHYSICIAN: Manoj Harris MD PERFORMING PHYSICIAN: Jeyson Gray MD CLINICAL INDICATIONS: 1. Chest pain. 2. Hypertension. 3. Hyperlipidemia. 4. Diabetes. 5. Abnormal stress test. DESCRIPTION OF PROCEDURE: After informed consent, the patient was prepped and draped in the usual sterile fashion. Lidocaine 2% was given on the right wrist for local anesthesia. Using micropuncture technique, a 6-Armenian sheath was introduced into the right radial artery. A JR4 6-Armenian diagnostic catheter was inserted into left ventricle across the aortic valve. LV end-diastolic pressure measured. Contrast was injected and LV angiogram was done. The catheter was pulled back across the aortic valve. Gradient across the aortic valve was measured. Then, the same catheter engaged in the right coronary artery. Contrast was injected and right coronary angiogram was done. Then, the catheter was exchanged to 6-Armenian [place] catheter. The catheter engaged in left main coronary artery. Contrast was injected and left coronary angiogram was done. The patient tolerated the procedure well. Postprocedure, the sheath was removed manually and Terumo radial band applied for excellent hemostasis. Radiological supervision and radiological interpretation of the coronary imaging was done. FINDINGS: 1. Left main coronary artery is patent. 2. LAD and diagonal branches are patent. 3. Left circumflex and obtuse marginals are patent. 4. Right coronary artery is dominant and patent. 5. LV ejection fraction is approximately 60%. No wall motion abnormality is noted. EDP is 13. No gradient across the aortic valve. IMPRESSION: 1. Normal coronaries. 2. Normal left ventricular systolic function. Recommend medical management. Jeyson Gray MD
--- NOTE | 2018-07-19 12:03 | CARD ---
APPROVED REPORT Date of service: 07/14/2018 EXAM: Two-dimensional and M-mode echocardiogram with Doppler and color Doppler. 2D DIMENSIONS IVSd0.9 (0.7-1.1cm)LVDd4.6 (3.9-5.9cm) PWd0.9 (0.7-1.1cm)LA Mrdkpt64 (18-58mL) LVDs2.7 (2.5-4.0cm)FS (%) 42.1 % LVEF (%)73.1 (>50%)LVEF (Fan's)60.01 % M-Mode DIMENSIONS Left Atrium (MM)3.82 (2.5-4.0cm)IVSd1.30 (0.7-1.1cm) Aortic Root3.05 (2.2-3.7cm)LVDd4.63 (4.0-5.6cm) Aortic Cusp Exc.1.84 (1.5-2.0cm)PWd1.34 (0.7-1.1cm) FS (%) 45 %LVDs2.54 (2.0-3.8cm) LVEF (%)77 (>50%) Mitral Valve MV E Sevxqumg019.0cm/sMV A Bkuznnpc308.7cm/sE/A ratio0.7 TDI Lateral E' Peak V7.13cm/sMedial E' Peak V4.09cm/sE/Lateral E'15.3 E/Medial E'26.7 Tricuspid Valve TR Peak Bopcjklu279mo/sTR Peak Gr.[id number] <Conclusion> Left ventricle: thickness: normal; size: normal; overall ejection fraction: 65%: diastolic filling pressures: elevated Mitral valve: annulus: normal: leaflets: normal: excursion: normal; no significant trans-mitral gradient: mild incompetence: left atrium: normal Aortic valve: leaflets: calcific thickening: excursion: normal; 16mmHg peak trans-aortic gradient: No significant incompetence: aortic root: normal Right sided Structures: Pulmonary valve: normal; no significant incompetence; Tricuspid valve: normal; no significant incompetence: Intra-cardiac hemodynamics: pulmonary systolic pressures: 38mmHg; central venous pressures: normal No pericardial effusion
== END 2018-07-17 15:15 | disposition home or self-care (01) | DRG 287 ==
LOC: C.ER 13:23 → C.9E 17:55 → C.5S 07-14 12:02
PROVIDERS: ADMIT Internal Medicine Cardiovascular Disease; ATTEND Internal Medicine Cardiovascular Disease
PROC: 4A023N7 Measurement of Cardiac Sampling and Pressure, Left Heart, Percutaneous Approach (ICD-10-PCS; principal; 2018-07-16)
PROC: B2111ZZ Fluoroscopy of Multiple Coronary Arteries using Low Osmolar Contrast (ICD-10-PCS; 2018-07-16)
DX: I11.0 Hypertensive heart disease with heart failure (principal); E78.5 Hyperlipidemia, unspecified; I50.9 Heart failure, unspecified; J45.909 Unspecified asthma, uncomplicated; M17.0 Bilateral primary osteoarthritis of knee; Z96.659 Presence of unspecified artificial knee joint; R07.89 Other chest pain